=== PATIENT | female | born 1980 | race Hispanic/Latino ===

== ENCOUNTER 2017-08-08 14:17 | Inpatient (IN) | payer OTHER ==
[2017-08-08 14:33] VITALS: BMI 25.7
[2017-08-08 15:58] LABS: BASO % 0.3 % (0.0-2.0); EOS % 0.4 % (0.0-4.0); HEMOGLOBIN 10.5 g/dL (12.0-16.0); LYMPH # 1.9 K/uL (1.0-4.3); LYMPH % 19.1 % (20.0-40.0); MEAN CELL VOLUME 70.5 fl (81.0-99.0); MEAN CORPUSCULAR HEMOGLOBIN 22.6 pg (27.0-31.0); MEAN CORPUSCULAR HGB CONC 32.1 g/dL (33.0-37.0); MEAN PLATELET VOLUME 8.6 fl (7.2-11.7); MONO # 0.6 K/uL (0.0-0.8); MONO % 5.8 % (0.0-10.0); NEUT # 7.5 K/uL (1.8-7.0); NEUT % 74.4 % (50.0-75.0); NRBC % 0.5 % (0.0-0.0); RBC 4.64 Mil/uL (3.80-5.20); RED CELL DISTRIBUTION WIDTH 18.1 % (11.5-14.5); WHITE BLOOD COUNT 10.1 K/uL (4.8-10.8)
[2017-08-08] MEDS ORDERED: Oxytocin 30 units/LR 500ML 30 U/500 ML BAG IV ONE (17:53)
[2017-08-08] MEDS: Lactated Ringer's 1,000 ML IV SCH ×2 (18:00→22:50)
[2017-08-09] MEDS ORDERED: Fentanyl/Bupivacaine HCl 250 ML EPI ONE (01:13)
[2017-08-09] MEDS: Lactated Ringer's 1,000 ML IV SCH ×2 (02:56→06:30)
[2017-08-09] MEDS ORDERED: Lidocaine 2% PF (10 ml) Amp ONE (06:43)
--- NOTE | 2017-08-09 08:12 | OBADHP ---
Datetime: 08/08/2017 15:00 Admit Comment, IP Provider: leyla IUP at 40+w c/o occ CTX; seen at PMD office 3-4cm upon exam; no SROM; no VB; +FM PNC: CP Dr Yanes - chart rev;d PMH: seizure 2012 PSH: foot surgery POBGYNH: x 1; hx HSV NKA A; IUP at 40w latent phase of labor; Rh neg; Hx HSV (no lesions) PLAN Admit; labs and observe progress Extremities - PN: Normal Abdomen - PN: Normal Back - PN: Normal Breast - PN: Normal Lungs - PN: Normal Heart - PN: Normal Thyroid - PN: Normal Neurologic - PN: Normal HEENT - PN: Normal General - PN: Normal Presentation-Admit: Vertex Membranes, Provider: Intact IP Hx Assessment: The History has been Reviewed and is Current IP Chief Complaint: Uterine contractions FHR Category Provider Fetus A: Category I NICHD Decel Fetus A IP Provider: None Dilatation, Provider: 3-4 Effacement, Provider: 50 Genitourinary Exam: Normal DTRs - PN: Normal EGA AdmitDate IP: 40.1 IP Adm Impression: Term, intrauterine ; Intact Membranes IP Admit Plan: Admit to unit; Initiate labor protocol
[2017-08-09] MEDS ORDERED: Benzocaine/Menthol SPRAY TOP PRN ×2 (08:19→11:23)
[2017-08-09] MEDS ORDERED: Oxycodone/Acetaminophen 5/325 mg Tab PO PRN ×2 (08:19→11:23)
--- NOTE | 2017-08-09 08:19 | OBDS ---
DELIVERY PERSONNEL Delivery Doctor: Roshan Yanes MD MATERNAL INFORMATION Estimated Blood Loss (ml): 250 Placenta Cultured: No Maternal Complications: None Provider Comments: Delivered a living BG appears LGA cried spontaneously 9/9, AF clear Placen ta delivered complete and intact Episiotomy done and repaired as above Uterus contracted well Tolerat ed procedure well No complications No cervical or vaginal lacerations noted Rectal done no defects LABOR SUMMARY EDC: 08/07/2017 00:00 LABOR INFORMATION Reason for Induction: Not Applicable Onset of Labor: 08/08/2017 12:00 Group B Beta Strep: Negative (Annotations: 07/03/17) Steroids Given: None Reason Steroids Not Administered: Not Applicable MEMBRANES Membranes Rupture Method: Spontaneous Amniotic Fluid Color: Clear Amniotic Fluid Amount: Moderate Amniotic Fluid Odor: Normal STAGES OF LABOR Stage 3 hrs: 168 Stage 3 min: 5 Total Time in Labor hrs: 19 Total Time in Labor min: 38 VAGINAL DELIVERY Episiotomy: Median Laceration Extension: Second Degree Laceration Type: None Laceration Repair: Yes Laceration Repair Note: a Second dg medial episiotomy done and repaired with 2-0 chromic suture inte rrupted for deep and continously for superficial. Sponge Count Correct: Yes Sharps Count Correct: Yes Count Comment: count correct x2 CSECTION DELIVERY Primary Indication: N/A Secondary Indication: N/A CSection Incision: N/A Uterine Closure: N/A BABY A INFORMATION Infant Delivery Date/Time: 08/02/2017 07:33 Method of Delivery: Vaginal Born in Route : No : N/A Forceps: N/A Vacuum Extraction: N/A Shoulder Dystocia : No SHOULDER DYSTOCIA BABY A Delivery Date/Time: 08/02/2017 07:33 PRESENTATION/POSITION BABY A Presentation: Cephalic Cephalic Presentation: Vertex Vertex Position: Left Occipital Anterior Breech Presentation: N/A PLACENTA INFORMATION BABY A Placenta Delivery Time : 08/09/2017 07:38 Placenta Method of Delivery: Spontaneous Placenta Status: Delivered SCORES BABY A Heart Rate 1 min: >100 bpm Resp Effort 1 min: Good Cry Reflex Irritability 1 min: Cough or Sneeze or Pulls Away Muscle Tone 1 min: Active Motion Color 1 min: Body [place], Extremities Blue Resuscitation Effort 1 min: Tactile Stimulation SCORE 1 MIN: 9 Heart Rate 5 min: >100 bpm Resp Effort 5 min: Good Cry Reflex Irritability 5 min: Cough or Sneeze or Pulls Away Muscle Tone 5 min: Active Motion Color 5 min: Body [place], Extremities Blue Resuscitation Effort 5 min: N/A SCORE 5 MIN: 9 INFORMATION BABY A Gestational Age at Delivery: 40.2 Gestational Status: Post-term Infant Outcome : Liveborn Infant Condition : Stable Infant Sex: Female IDENTIFICATION/MEDS BABY A ID Band Number: [id number] ID Band Location: Left Leg; Left Arm Vitamin K Given : Not Given Erythromycin Given: Not Given WEIGHT/LENGTH BABY A Birthweight (gms): 4485 Infant Weight (lb): 9 Weight (oz): 14 CORD INFORMATION BABY A No. 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
[2017-08-09] MEDS ORDERED: Hydrocortisone-Pramoxine(Proctofoam HC) EXT PRN (17:15)
[2017-08-09] MEDS ORDERED: Hydrocortisone-Pramoxine 1%-1% Foam(10 gm) ONE (17:18)
[2017-08-09] MEDS ORDERED: Hydrocortisone-Pramoxine 1%-1% Foam(10 gm) TOP PRN (17:41)
[2017-08-10 06:10] LABS: HEMOGLOBIN 7.3 g/dL (12.0-16.0); MEAN CELL VOLUME 70.5 fl (81.0-99.0); MEAN CORPUSCULAR HEMOGLOBIN 22.6 pg (27.0-31.0); RBC 3.23 Mil/uL (3.80-5.20); RED CELL DISTRIBUTION WIDTH 18.5 % (11.5-14.5); WHITE BLOOD COUNT 16.1 K/uL (4.8-10.8)
--- NOTE | 2017-08-10 08:47 | OBPPN ---
Datetime: 08/10/2017 08:41 PP Pain Prov: Within normal limits PP Pain Prov comment: no SOB, chest or leg pains PP Nausea Prov: Denies PP Nausea Prov comment: voiding well PP Flatus Prov comment: no dizziness PP Breasts Prov: Normal PP Lungs Prov: Normal PP Abdomen/Uterus Prov: Abnormal PP Lochia Prov: Normal PP Vulva/Perineum Prov: Abnormal PP CVA Tenderness Prov: Normal PP Extremities Prov: Normal PP C/S Incision Prov: Not Applicable PP Progress Prov: Normal PP Comments Phys Exam Prov: breast not engorged Abd soft ND fundus firm below the umb. NT Perineum repaired Ext no calf tenderness PP Impression Prov: Normal progression PP Plan Prov: Continue present management PP Impression Other Prov: anemia PP Progress Note Prov: pt asymptomatic so will start on po iron Start sitz baths IP PP Procedures: None
--- NOTE | 2017-08-11 09:43 | OBPPN ---
Datetime: 08/11/2017 09:39 PP Pain Prov: Within normal limits PP Pain Prov comment: No SOB, chest pains or leg pain PP Nausea Prov: Denies PP Flatus Prov: Yes PP Nausea Prov comment: voiding well PP Flatus Prov comment: no dizzziness PP Breasts Prov: Normal PP Lungs Prov: Normal PP Abdomen/Uterus Prov: Abnormal PP Lochia Prov: Normal PP Vulva/Perineum Prov: Abnormal PP CVA Tenderness Prov: Normal PP Extremities Prov: Normal PP C/S Incision Prov: Not Applicable PP Progress Prov: Normal PP Comments Phys Exam Prov: breast NT, not engorged; Abd soft ND, fundus firm below the umb NT Perin eum repaired Ext no calf tenderness PP Impression Prov: Normal progression PP Plan Prov: Discharge PP Progress Note Prov: D/C home with instructions IP PP Procedures: None Vital Signs Provider PP: Reviewed
--- NOTE | 2017-08-11 09:45 | OBDCSUM ---
Datetime: 08/11/2017 09:42 Discharged to, Provider: Home Follow up at, Provider: Dr Yanes Disch Instr Activity: Bedrest; May be up to bathroom; May be up for meals; May Shower Disch Instr Diet: Regular Discharge Instructions, Provider: Routine instructions given Discharge Diagnosis, Provider: Term Delivered Discharge Time: 08/11/2017 09:42 Follow up in weeks, Provider: 4 wks Disch Referrals: None Contraception discussed, Prov: Yes Disch Activity Restrictions: No exercising; No lifting; No driving; Minimize walking; Minimize stair -climbing; No sexual activity; Nothing in vagina - [place], tampons, douche Discharge Comment, Provider: Continue PNC vit and iron Discharge Diagnosis Prov Other: anemia Contraception after Delivery: Undecided
[2017-08-11] MEDS ORDERED: Lansinoh for Breast Feeding Mothers TP ONE (11:25)
[2017-08-11 19:02] VITALS: BP 125/77; PULSE 96; RESP 20; TEMP 97.4; O2SAT 99
== END 2017-08-11 13:30 | disposition home or self-care (01) | DRG 775 ==
LOC: H.EROB2 14:17 → H.L&D 14:34 → H.OB/GYN 08-09 11:01
PROVIDERS: ADMIT Specialist; ATTEND Specialist
PROC: 4A1HXCZ Monitoring of Products of Conception, Cardiac Rate, External Approach (ICD-10-PCS; 2017-08-08)
PROC: 0W8NXZZ Division of Female Perineum, External Approach (ICD-10-PCS; principal; 2017-08-09)
PROC: 10E0XZZ Delivery of Products of Conception, External Approach (ICD-10-PCS; 2017-08-09)
DX: O36.63X0 Maternal care for excessive fetal growth, third trimester, not applicable or unspecified (principal); O70.1 Second degree perineal laceration during delivery; Z3A.40 40 weeks gestation of pregnancy; Z37.0 Single live birth; O48.0 Post-term pregnancy